=== PATIENT | female | born 1940 | race Hispanic/Latino ===

== ENCOUNTER 2017-08-29 12:47 | Inpatient (IN) | payer MEDICARE, OTHER ==
[~2017-08-29] VITALS: Ht 142.2 cm; Wt 46.3 kg
[2017-08-29] MEDS ORDERED: SODIUM CHLORIDE 0.9% 1000ML 1,000 ML IV SCH (14:15)
[2017-08-29] MEDS ORDERED: ALBUTEROL/IPRATROPIUM 3 ML NEB NEB ONE ×2 (15:45→17:00)
[2017-08-29] MEDS ORDERED: SODIUM CHLORIDE 0.9% 500ML 500 ML IV ONE (16:30)
[2017-08-29] MEDS ORDERED: METHYLPREDNISOLONE SOD SUCC 125 MG/2ML VIAL IV ONE (17:00)
[2017-08-29] MEDS ORDERED: CEFTRIAXONE SOD 1 GM VIAL IV ONE (17:15)
[2017-08-29] MEDS ORDERED: AZITHROMYCIN 500MG/NS 250 ML 250 ML IV ONE (17:15)
[2017-08-29 18:51] VITALS: BP 139/64
[2017-08-29] MEDS ORDERED: ASPIRIN 81 MG CHEW TAB PO ONE (19:00)
[2017-08-29 19:45] VITALS: BP 139/64
--- OUTSIDE RECORDS SUMMARY | 2017-08-29 20:58 | XMS REPORT | Continuity of Care Document ---
Author Author [facility] Organization [facility] Address [address] [place] [address] Phone Unavailable Care Team Providers Care Veterinary Poultry Inspector Name Role Phone NONSTAFF PCP Unavailable Insurance Providers Guarantor KeyurDanica Address [address] [address] Payer [employer] Policy Number [id number] Subscriber's Name Danica Santos Relationship 18 Self / Same As Patient Group Number [id number] Group Name [place] MEDICARE MEDICAID PLAN Advance Directives Directive Response Recorded Date/Time Does the patient have an advance directive? No 08/29/17 12:56pm Do you have a Directive to Physician? No 08/29/17 12:56pm Do you have a Medical Power of Manager Company? No 08/29/17 12:56pm Do you have an out of hospital Do Not Resuscitate Order? No 08/29/17 12:56pm Do you have any special needs we should be aware of? No 08/29/17 12:56pm Do you have a support person here with you today? Yes 08/29/17 12:56pm Did patient receive Notice of Privacy Practices? Yes 08/29/17 12:56pm Did patient receive patient rights and responsibilities? Yes 08/29/17 12:56pm Problems No problem information available. Medications No medication information available. Social History Smoking Status Start Date Stop Date Never Smoker Hospital Discharge Instructions No hospital discharge instruction information available. Plan of Care Discharge Date 08/29/17 6:59pm Disposition ADMITTED Condition at Discharge Stable Forms Provided Work/School Excuse Prescriptions See Medication Section Functional Status No functional status information available. Allergies, Adverse Reactions, Alerts No known allergies. Immunizations No immunization information available. Vital Signs Acute Vital Signs Vital Response Date/Time Temperature (Fahrenheit) 98.4 degrees F (97.6 - 99.5) 08/29/2017 6:52pm Pulse Pulse Rate (adult) 95 bpm (60 - 90) 08/29/2017 6:52pm Respiratory Rate 18 bpm (12 - 24) 08/29/2017 6:52pm Blood Pressure 132/72 mm Hg 08/29/2017 6:52pm Height 4 ft 8 in 08/29/2017 1:15pm Weight 77 lb 08/29/2017 1:15pm Body Mass Index 17.3 kg/m^2 08/29/2017 1:15pm Results No relevant diagnostic test, laboratory data and/or discharge summary information available. Procedures No procedure information available. Encounters Encounter Location Arrival/Admit Date Discharge/Depart Date Attending Provider Departed Emergency Room [facility] 08/29/17 12:47pm 08/29 6:59pm DEEP ATKINS MD
[2017-08-29] MEDS ORDERED: ONDANSETRON HCL INJ 2 MG/ML VIAL IV PRN (21:30)
[2017-08-29] MEDS: ALBUTEROL/IPRATROPIUM 3 ML NEB NEB SCH (21:30)
[2017-08-29] MEDS ORDERED: ACETAMINOPHEN 325 MG TAB PO PRN (21:30)
[2017-08-29] MEDS ORDERED: GABAPENTIN100 MG PO (23:35)
[2017-08-29] MEDS ORDERED: ULTRACET TABLE1 EACH PO (23:35)
[2017-08-29] MEDS ORDERED: LOVASTATIN20 MG PO (23:35)
[2017-08-29] MEDS ORDERED: LOSARTAN POTASS25 MG PO (23:35)
[2017-08-29] MEDS ORDERED: BRESALTEC (23:35)
[2017-08-29] MEDS ORDERED: ALPRAZOLAM0.25 MG PO (23:35)
[2017-08-29] MEDS ORDERED: MONTELUKAST SOD10 MG PO (23:35)
[2017-08-29] MEDS ORDERED: CITALOPRAM HBR20 MG PO (23:35)
[2017-08-30] VITALS (7 sets, daily range): BP systolic 107–141; BP diastolic 57–90
[2017-08-30] MEDS ORDERED: TRAMADOL/APAP 37.5MG-325MG TAB PO PRN
[2017-08-30 00:34] LABS: CREATINE KINASE MB 3.6 ng/mL (0.00-5.00)
[2017-08-30] MEDS: ALBUTEROL/IPRATROPIUM 3 ML NEB NEB SCH ×4 (01:00→20:18)
[2017-08-30] MEDS ORDERED: AZITHROMYCIN 500MG/NS 250 ML 250 ML IV ONE (05:30)
[2017-08-30] MEDS ORDERED: ASPIRIN 325 MG TAB PO ONE (05:30)
[2017-08-30] MEDS ORDERED: CEFTRIAXONE SOD 1 GM VIAL IV ONE (05:30)
[2017-08-30] MEDS ORDERED: METHYLPREDNISOLONE SOD SUCC 125 MG/2ML VIAL IV ONE (05:30)
--- NOTE | 2017-08-30 05:36 | Diagnostic Imaging Report ---
EXAM: CHEST SINGLE (PORTABLE), AP 1 view ORDER DATE: 08/30/2017 5:00 AM Time stamp on exam: 0514 hours INDICATION: COPD/hypoxia COMPARISON: None FINDINGS: LINES/TUBES: None LUNGS: Emphysematous changes. Bibasilar bronchial thickening and atelectasis. PLEURA: No effusions or pneumothorax. HEART AND MEDIASTINUM: Limited evaluation given rotation. BONES AND SOFT TISSUES: No acute findings. IMPRESSION: Emphysematous changes with bronchial thickening and bibasilar atelectasis. Findings could represent bronchitis. Signed by: Dr. Shilpi Cordon M.D. on 08/30/2017 5:33 AM
[2017-08-30 06:21] LABS: HEMOGLOBIN 12.9 g/dL (12.0-16.0); LYMPHOCYTES # (AUTO) 0.3 (1.0-3.2); LYMPHOCYTES % 7.5 % (18.0-39.1); MEAN CORPUSCULAR HEMOGLOBIN 30.6 pg (28-32); MEAN CORPUSCULAR HGB CONC 31.5 g/dL (31-35); MEAN CORPUSCULAR VOLUME 97.4 fL (81-99); MONOCYTES # (AUTO) 0.1 (0.2-0.8); MONOCYTES % 3.1 % (4.4-11.3); NEUTROPHILS # (AUTO) 3.8 (2.1-6.9); NEUTROPHILS % 88.7 % (38.7-80.0); PLATELET COUNT 116 x10e3/uL (140-360); RED BLOOD COUNT 4.21 x10e6/uL (3.6-5.1); RED CELL DISTRIBUTION WIDTH 13.6 % (11.7-14.4)
[2017-08-30 06:48] LABS: ANION GAP 12.6 mmol/L (8-16); BLOOD UREA NITROGEN 22 mg/dL (7-26); BUN/CREATININE RATIO 26 (6-25); CARBON DIOXIDE 34 mmol/L (22-29); CHLORIDE 105 mmol/L (98-107); CREATINE KINASE 94 IU/L (29-168); CREATININE, SERUM 0.85 mg/dL (0.57-1.11); EST GLOMERULAR FILTRATION RATE > 60 ML/MIN (60-); GLUCOSE 169 mg/dL (74-118); POTASSIUM 4.6 mmol/L (3.5-5.1); SODIUM 147 mmol/L (136-145)
[2017-08-30] MEDS: CITALOPRAM HYDROBROMIDE 20 MG TAB PO SCH (08:25)
[2017-08-30] MEDS: LOSARTAN POTASSIUM 25 MG TAB PO SCH (08:25)
[2017-08-30] MEDS ORDERED: LEVALBUTEROL HCL SOLN NEBU 0.63 MG/3 ML NEB INH PRN (10:15)
--- NOTE | 2017-08-30 10:24 | History and Physical ---
CHIEF COMPLAINT DICTATION NOT COMPLETE, LENGTH 0:10 Job#: [id number] RI
--- NOTE | 2017-08-30 10:41 | History and Physical ---
The patient is confused. Family is speaking Monegasque. The history is taken with the help of an incident response lead. CHIEF COMPLAINT: Not feeling well and sleepy. HPI: Ms. Klein is a 77-year-old female who presented to the free-standing emergency room because the family brought her in as she was too sleepy and confused. We do not know exactly how long she has been confused. She is living by herself. One of her nieces takes care of her 6 hours a day. In the emergency room, the patient underwent a chest x-ray, which showed emphysematous changes. I am unable to look at those films despite the fact the CDs are here, but they are not working. CT of head showed no evidence of acute hemorrhage or infarct. She had a CT of the chest, which showed a 1 cm spiculated nodule. I am not able to look at the films. She has 40+ smoking history. She quit 15 years ago. She is confused and unable to give me more history. According to the family, she has a history of high blood pressure. REVIEW OF SYSTEMS: Unable to elicit a detailed review of systems because of the patient's altered mental status. PAST MEDICAL HISTORY: Hypertension. PAST SURGICAL HISTORY: Unknown. FAMILY AND SOCIAL HISTORY: Ex-smoker. PHYSICAL EXAMINATION VITAL SIGNS: Temperature 96.8, pulse 104, blood pressure 118/57, afebrile. SKIN: Warm and dry. GENERAL: Elderly female not in any obvious distress. She is awake and alert, and following commands. Responds to questions appropriately. HEENT: Atraumatic and normocephalic. Pupils reactive. NECK: Supple. No JVD. CHEST: Markedly reduced air entry. Poor effort. HEART: S1 and S2 audible. No murmurs, gallops or rubs. ABDOMEN: Soft, nontender and nondistended. EXTREMITIES: No pedal edema. NEUROLOGIC: Awake and alert. Following commands. LABS: White count of 4000, hemoglobin 12.9. Chemistry is within normal limits. Troponin went from 0.79 to 0.81. IMPRESSION: Ms. Klein is a 77-year-old female who presented with altered mental status. Likely, has a history of chronic obstructive pulmonary disease. Computerized tomography of the head is negative. PLAN 1. I will continue the patient on Xopenex nebs. 2. Repeat a CT of the chest as I am unable to look at the film. Patient has a spiculated mass, which I have to evaluate. 3. Consult neurology for altered mental status. 4. Consult cardiology for abnormal troponin. 5. Discussed with the patient's niece at bedside in detail. 6. I will also put case management consult. Patient possibly may need placement. Job#: [id number] YUDI
[2017-08-30] MEDS ORDERED: DEXTROSE 50% SYRINGE 50 ML IV PRN (11:00)
[2017-08-30] MEDS: INSULIN REGULAR, HUMAN 100 UNIT/1 ML 3ML VIAL SQ SCH ×3 (11:30→21:00)
--- NOTE | 2017-08-30 11:58 | Diagnostic Imaging Report ---
PROCEDURE: CT CHEST WITHOUT CONTRAST CT scan of the chest WITHOUT intravenous contrast, using standard protocol. TECHNIQUE: The chest was scanned utilizing a multidetector helical scanner from the apex to the level of the adrenal glands. No IV contrast was administered. Coronal and sagittal multiplanar reformations were obtained. COMPARISON: Chest radiograph 08/30/2017 INDICATIONS: SHORTNESS OF BREATH FINDINGS: Lines/tubes: None. Lungs and Airways: Diffuse centrilobular emphysematous changes. No focal consolidations. Few nodules, including (on series 3): * Right lower lobe superior segment 0.9 cm spiculated nodular opacity (image 37). * Right lower lobe 0.4 cm nodule (image 55). * Left lower lobe calcified granuloma. Central airways are clear. Mild bronchial wall thickening, more prominent in the lower lobes. Pleura: The pleural spaces are clear. Heart and mediastinum: Enlarged noncalcified AP window lymph node measures 1.3 cm in short axis dimension (series 2 image 45). Additional scattered prominent but subcentimeter mediastinal nodes. Calcified left hilar lymph node, likely related to prior granulomatous disease. The heart and pericardium are within normal limits. The pulmonary artery measures 3 cm in diameter. Ascending aorta measures 2.9 cm in diameter. Coronary artery and aortic atherosclerotic calcifications. Densely peripherally calcified 1.2 cm nodule in the posterior right thyroid lobe. Soft tissues: Normal. Abdomen: Low attenuating 0.7 cm lesion in the left kidney, incompletely evaluated but may represent a cyst. Limited views of the upper abdomen show no abnormality within the visualized liver, spleen, or pancreas. The adrenal glands are normal. Bones: Multilevel degenerative changes of the spine. No acute or aggressive osseous lesions. IMPRESSION: 1. No evidence of pneumonia. 2. Diffuse centrilobular emphysema. Mild bronchial wall thickening likely reflecting bronchitis. 3. Few pulmonary nodules including a 0.9 cm right lower lobe spiculated nodule. Recommend chest CT without contrast in 3 months, PET/CT, or tissue sampling. Dictated by: Suhas Black M.D. on 08/30/2017 at 12:07 Electronically approved by: Suhas Black M.D. on 08/30/2017 at 12:07
--- NOTE | 2017-08-30 13:19 | Consultation ---
DATE OF CONSULTATION: August 30, 2017 CARDIOLOGY CONSULTATION ATTENDING PHYSICIAN: Dr. James. Thank you for asking me to see this nice lady in consultation. Mrs. Klein is apparently a demented, elderly, woman who speaks only South African. CHIEF COMPLAINT: Sent from Dr. Akbar's office with increasing shortness of breath. HISTORY OF PRESENT ILLNESS: Patient is not able to provide me with any details really. She thinks it is the afternoon, even though it is the morning. PAST MEDICAL HISTORY: Not fully available, although it is known that she uses oxygen and inhalers at home. Patient cannot provide me details of her past medical history or surgical history. PHYSICAL EXAMINATION GENERAL: Exam at this time shows a disheveled, elderly, woman who, while she can tell me her name and that she is in a hospital, does not cooperate with my physical exam. VITALS: Current blood pressure 118/57, pulse 100, afebrile, 4 feet 8 inches tall with weight 102 pounds. HEENT: Unremarkable. NECK: No jugular venous distention. No bruits. THORAX: Heart sounds S1 and S2 are equal. There is a 1/6 systolic murmur in the aortic region. Lungs have faint diffuse crackles anterior and posterior ABDOMEN: Normal bowel sounds, nontender. EXTREMITIES: Skin excoriations in the lower extremities. No edema. EKG shows sinus rhythm. Sinus tachycardia with nonspecific ST and T-wave changes. Possible small Q waves in the inferior leads. PERTINENT LABORATORY STUDIES: Glucose 169. White count 4.2, hemoglobin 12.9. Troponins are mildly elevated at 0.79 and 0.81, but CK and CK-MBs are perfectly normal. Chest x-ray shows emphysematous changes and possible bronchitis. Evidently CAT scan of the chest was performed at the Emergency Center suggesting possible spiculated mass in the right lower lobe, but those images are not available at this time. ASSESSMENT 1. Exacerbation of chronic obstructive pulmonary disease. Previously using home oxygen. 2. Possible lung mass. 3. Adult-onset diabetes, history not available. 4. Abnormal troponins, likely underlying coronary disease but not representing myocardial infarction. 5. Murmur not previously diagnosed, likely aortic in location. PLAN: Will monitor her closely. Await pulmonary further evaluation and treatment. Check echocardiogram and repeat EKG. She will need social work services as she currently lives alone and the niece in the room does not speak any Kazakh and cannot read Kazakh or South African. Thank you for asking me to see her consultation. Job#: [id number] cc:Zayda STILL MD
[2017-08-30] MEDS ORDERED: ROPIVACAINE 246.25 MG, EPINEPHRINE HCL 1:1000 0.5 MG, CLONIDINE HCL 0.08 MG, KETOROLAC ... INJ ONE ×5 (14:30)
--- NOTE | 2017-08-30 19:58 | Consultation ---
DATE OF CONSULTATION: NO DICTATION. 2 seconds. Job#: [id number] GH
[2017-08-30] MEDS: SIMVASTATIN 20 MG TAB PO SCH (20:37)
[2017-08-30] MEDS: MONTELUKAST SODIUM 10 MG TAB PO SCH (20:37)
--- NOTE | 2017-08-30 22:10 | Consultation ---
DATE OF CONSULTATION: August 30, 2017 NEUR[address]ICAL [address] Patient of Dr. James. TIME: 6 p.m. REASON FOR CONSULTATION: Altered mental status. This is a 77-year-old female who was brought to the emergency room by family members because of not feeling well, confused and shortness of breath. At the present time, she is here along with her niece, who said that she has been somewhat confused for a while, but yesterday got worse, disoriented, shortness of breath. Went to the PCP and was sent to the emergency room. PAST MEDICAL HISTORY: She has a history of hypertension, COPD, and altered mental status. SURGICAL HISTORY: Unknown. The niece says she has sisters living in [place], but now she is living alone. She some times needs from time to time. REVIEW OF SYSTEMS: Unable to get any information. PHYSICAL EXAMINATION GENERAL: Very talkative lady. VITALS: Blood pressure is quite normal. It is 110/60, pulse 76, and afebrile. LUNGS: Clear to auscultation. HEART: Regular sinus rhythm. No murmur. ABDOMEN: Soft. No organomegaly. EXTREMITIES: Moving all 4 extremities symmetrical. NEURO: The patient is alert. Follows simple commands. She is disoriented times 3. She does not where she is now. She does not know where she lives. She talked about her sister being in [place]. She denies any headache. No dizziness, speech or swallowing difficulties. No focal paresthesia. The niece said she cannot walk because of body complaints. Cranial nerves: Pupils are both equal and reactive. Extraocular movements were full. Visual field was normal. No facial weakness. The patient is moving all 4 extremities symmetrical. No evidence of focal weakness. Plantar stimulation is down bilaterally. Deep tendon reflexes of the triceps, biceps and radialis are 1+. Knee jerk absent bilaterally. Ankle jerk absent bilaterally. Plantar stimulation down bilaterally. HEENT: Head is normocephalic. NECK: Supple. Carotid pulsations were present bilaterally with no bruits. LABORATORY WORKUP: CBC shows a white count of 4200 with hemoglobin of 12.9, hematocrit 41 and platelets 116,000. Chemistry: Sodium 147, potassium 4.6, BUN 22, creatinine 1.85, estimated GFR greater than 60. Glucose 169. Calcium 9. Troponin somewhat elevated. CT scan of the brain shows no acute pathology. IMPRESSION 1. Dementia, unspecified. 2. Chronic obstructive pulmonary disease. 3. Hypertension. RECOMMENDATIONS: We are going to get an MRI of the brain without contrast. Will get to evaluate the patient. As soon as we have the MRI, will discuss with the attending physician for further options. Job#: [id number] RI
[2017-08-31] VITALS (8 sets, daily range): BP systolic 122–160; BP diastolic 64–94
[2017-08-31] MEDS: ALBUTEROL/IPRATROPIUM 3 ML NEB NEB SCH ×4 (01:00→20:35)
[2017-08-31] MEDS: ALPRAZOLAM 0.25 MG TAB PO SCH ×3 (06:30→21:54)
[2017-08-31] MEDS ORDERED: LORAZEPAM INJ 2 MG/ML VIAL IV PRN (07:00)
[2017-08-31] MEDS: INSULIN REGULAR, HUMAN 100 UNIT/1 ML 3ML VIAL SQ SCH ×4 (07:30→21:00)
[2017-08-31] MEDS: METOPROLOL TARTRATE 25 MG TAB PO SCH ×2 (08:55→21:53)
[2017-08-31] MEDS: LOSARTAN POTASSIUM 25 MG TAB PO SCH (08:55)
[2017-08-31] MEDS: CITALOPRAM HYDROBROMIDE 20 MG TAB PO SCH (08:55)
[2017-08-31] MEDS: ASPIRIN 325 MG TAB PO SCH (08:55)
[2017-08-31] MEDS: FAMOTIDINE 20 MG/2 ML VIAL IV SCH ×2 (09:00→17:20)
[2017-08-31 09:07] LABS: CHOL/HDL RATIO 3.3 (3.0-3.6)
--- NOTE | 2017-08-31 09:22 | Consultation ---
DATE OF CONSULTATION: REQUESTING PHYSICIAN: Dr. James. REASON FOR CONSULTATION: Medical management. CHIEF COMPLAINT: Confusion and shortness of breath. HISTORY OF PRESENT ILLNESS: This is a 77-year-old woman who is in the hospital with a state of confusion. History is limited at this time, unable to obtain any prior records and the patient is a poor historian. However, based on the electronic medical record on this occasion, the patient was confused when she presented to the hospital. Imaging showed a spiculated lung nodule in the setting of significant smoking history. The patient was also found to have emphysematous changes of the lungs. No CT of the brain has yet been obtained. Urinalysis has not yet been obtained. PAST MEDICAL HISTORY: Hypertension. Tobacco abuse. PAST SURGICAL HISTORY: Unknown. ALLERGIES: PER ELECTRONIC MEDICAL RECORD. FAMILY HISTORY AND SOCIAL HISTORY: The patient lives with her niece, who is involved in her care. History of significant cigarette use for 40-plus years. MEDICATIONS: Per electronic medical record. REVIEW OF SYSTEMS: Patient denies any chest pain. PHYSICAL EXAMINATION VITAL SIGNS: Have been reviewed. GENERAL APPEARANCE: A tired-appearing woman resting in bed. HEENT: Anicteric. CARDIOVASCULAR: Normal S1 and S2. LUNGS: She has reduced breath sounds throughout. ABDOMEN: Soft, nontender, nondistended. EXTREMITIES: No edema or calf tenderness. NEUROLOGIC: She is awake and alert. She moves all extremities, but confused. SKIN: Dry. PSYCHIATRIC: Flat affect. LABS: Reviewed. MEDICATIONS: Reviewed. ASSESSMENT AND PLAN: A 77-year-old woman. 1. Acute delirium. Will follow up MRI imaging. 2. Spiculated right lung nodule. Whether biopsy is needed is unclear at this time. In the meantime, will treat her supportively and further discuss with family. 3. Hypernatremia. Check labs this morning. 4. Elevated troponin as high as 0.837. Will obtain a lipid panel. Continue statin medications. Add aspirin 325. Await cardiology evaluation. 5. Acute emphysema exacerbation. I will continue montelukast. Consider steroids. 6. Anxiety/depression. Will continue citalopram and treat her with Xanax 0.25 q.12 h. scheduled. 7. Physical deconditioning. Physical therapy consultation. 8. Thrombocytopenia. We will avoid anticoagulants in this patient. 9. Hypertension and tachycardia. Will start her on low-dose beta meghan in the setting of elevated troponin. 10. Hyperglycemia. Will obtain hemoglobin A1c. 11. Prophylaxis: Will apply SCDs. Will use Pepcid. Hold off anticoagulants in the setting of thrombocytopenia. 12. Disposition: Obtain urinalysis. Obtain TSH. Follow up cardiology's recommendations. Job#: [id number]
[2017-08-31] MEDS ORDERED: LORAZEPAM INJ 2 MG/ML VIAL ONE (14:06)
[2017-08-31 15:30] LABS: BILIRUBIN,URINE NEGATIVE (NEGATIVE); CLARITY,URINE CLEAR (CLEAR); COLOR,URINE YELLOW (YELLOW); KETONES,URINE NEGATIVE (NEGATIVE); LEUKOCYTE ESTERASE ,URINE NEGATIVE (NEGATIVE); NITRITE,URINE NEGATIVE (NEGATIVE); URINE UROBILINOGEN 0.2 mg/dL (0.2 - 1)
[2017-08-31 15:32] LABS: PROTEIN,URINE DIPSTICK 1+ (NEGATIVE)
[2017-08-31 15:38] LABS: BACTERIA,URINE RARE /HPF; EPITHELIAL CELLS,URINE FEW /LPF; MUCUS,URINE RARE (RARE); RBC,URINE 0-5 /HPF (0-5)
[2017-08-31] MEDS: MONTELUKAST SODIUM 10 MG TAB PO SCH (21:53)
[2017-08-31] MEDS: SIMVASTATIN 20 MG TAB PO SCH (21:53)
[2017-09-01] VITALS (8 sets, daily range): BP systolic 119–162; BP diastolic 58–94
--- NOTE | 2017-09-01 00:19 | Cardiology Report ---
DATE OF STUDY: ECHOCARDIOGRAM M-MODE: Dilated right ventricle and right atrium. Normal left ventricular wall thickness and contractility. Ejection fraction is approximately 60%. Mitral, aortic, and tricuspid valves are grossly normal. There is no pericardial effusion. SECTOR SCAN: Dilated right ventricle and right atrium. Normal left ventricular wall thickness and contractility. Ejection fraction is approximately 60%. Mitral, aortic, and tricuspid valves are grossly normal. There is no pericardial effusion. CARDIAC DOPPLER STUDY WITH COLOR: 2+ tricuspid regurgitation. Pulmonary artery systolic pressure estimated at 54 mmHg. CONCLUSIONS 1. Moderate tricuspid regurgitation with dilated right ventricle and right atrium with moderate pulmonary hypertension. Pulmonary artery systolic pressure estimated at 54 mmHg. 2. Left ventricular ejection fraction is approximately 60%. Job#: [id number] cc:ALBINO ROJAS MD
[2017-09-01] MEDS: ALBUTEROL/IPRATROPIUM 3 ML NEB NEB SCH ×4 (01:00→20:05)
[2017-09-01] MEDS: INSULIN REGULAR, HUMAN 100 UNIT/1 ML 3ML VIAL SQ SCH ×4 (07:30→21:07)
[2017-09-01] MEDS: ALPRAZOLAM 0.25 MG TAB PO SCH ×2 (09:42→21:07)
[2017-09-01] MEDS: ASPIRIN 325 MG TAB PO SCH (09:42)
[2017-09-01] MEDS: METOPROLOL TARTRATE 25 MG TAB PO SCH ×2 (09:42→21:07)
[2017-09-01] MEDS: LOSARTAN POTASSIUM 25 MG TAB PO SCH (09:42)
[2017-09-01] MEDS: FAMOTIDINE 20 MG/2 ML VIAL IV SCH ×2 (09:42→16:55)
[2017-09-01] MEDS: CITALOPRAM HYDROBROMIDE 20 MG TAB PO SCH (09:42)
--- NOTE | 2017-09-01 11:22 | Progress Note ---
DATE: ADDENDUM The patient's hemoglobin A1c is 6.2. She has pre-diabetes. Placed her on diabetic diet. LDL is 80 and triglycerides 91. Continue statin. Job#: [id number] SAK
--- NOTE | 2017-09-01 11:44 | Progress Note ---
DATE: September 01, 2017 TIME: 7 a.m. OVERNIGHT: Less short of breath. REVIEW OF SYSTEMS: Denies any chest pain. PHYSICAL EXAMINATION VITAL SIGNS: Reviewed. GENERAL: A tired-appearing woman, resting in bed. HEENT: Anicteric. CARDIOVASCULAR: Normal S1, S2. LUNGS: Reduced breath sounds throughout. ABDOMEN: Soft, nontender, nondistended. EXTREMITIES: No edema or calf tenderness. NEUROLOGIC: Alert and awake and appropriate, moving all extremities. SKIN: Dry. PSYCHIATRIC: Flat affect. LABS: Reviewed. MEDICATIONS: Reviewed. ASSESSMENT AND PLAN: A 77-year-old woman with; 1. Acute delirium. 2. Spiculated right lung nodule. 3. Hypernatremia. 4. Elevated troponin. 5. Acute emphysema exacerbation. 6. Anxiety/depression. 7. Physical deconditioning. 8. Thrombocytopenia. 9. Hypertension/tachycardia. 10. Hyperglycemia. PLAN 1. Continue oxygen support. 2. Hemoglobin A1c 6.2, LDL 80, and triglycerides 91. 3. Troponin is non-evolving with highest troponin 8.37. 4. Continue beta-meghan, statin, and aspirin. 5. Continue nebs, montelukast, oxygen. 6. Followup echocardiogram. Echocardiogram showed left ventricular ejection fraction of 60%, moderate TR, and moderate pulmonary hypertension. 7. Continue Pepcid. No anticoagulants due to thrombocytopenia. 8. Obtain labs this morning. 9. Plan for spiculated lung nodule and elevated cardiac enzymes ongoing. Job#: [id number] MINO
[2017-09-01] MEDS: MONTELUKAST SODIUM 10 MG TAB PO SCH (21:07)
[2017-09-01] MEDS: SIMVASTATIN 20 MG TAB PO SCH (21:07)
[2017-09-02] VITALS: BP 179/77
[2017-09-02] MEDS: ALBUTEROL/IPRATROPIUM 3 ML NEB NEB SCH ×4 (01:25→20:12)
[2017-09-02 04:00] VITALS: BP 157/75
[2017-09-02] MEDS: INSULIN REGULAR, HUMAN 100 UNIT/1 ML 3ML VIAL SQ SCH ×4 (08:00→20:50)
[2017-09-02] MEDS: LOSARTAN POTASSIUM 25 MG TAB PO SCH (08:45)
[2017-09-02] MEDS: ASPIRIN 325 MG TAB PO SCH (08:45)
[2017-09-02] MEDS: FAMOTIDINE 20 MG/2 ML VIAL IV SCH ×2 (08:45→17:57)
[2017-09-02] MEDS: ALPRAZOLAM 0.25 MG TAB PO SCH ×2 (08:45→20:50)
[2017-09-02] MEDS: METOPROLOL TARTRATE 25 MG TAB PO SCH ×2 (08:45→20:50)
[2017-09-02] MEDS: MEGESTROL ACETATE 40 MG TAB PO SCH ×2 (08:45→17:57)
[2017-09-02] MEDS: CITALOPRAM HYDROBROMIDE 20 MG TAB PO SCH (08:45)
[2017-09-02 10:20] VITALS: BP 163/74
[2017-09-02 11:32] LABS: BASOPHILS % 0.1 % (0.0-1.0); EOSINOPHILS % 0.5 % (0.0-6.0); HEMATOCRIT 40.3 % (34.2-44.1); HEMOGLOBIN 12.7 g/dL (12.0-16.0); LYMPHOCYTES # (AUTO) 0.8 (1.0-3.2); LYMPHOCYTES % 11.2 % (18.0-39.1); MEAN CORPUSCULAR HEMOGLOBIN 30.6 pg (28-32); MEAN CORPUSCULAR HGB CONC 31.5 g/dL (31-35); MEAN CORPUSCULAR VOLUME 97.1 fL (81-99); MONOCYTES # (AUTO) 0.7 (0.2-0.8); MONOCYTES % 9.4 % (4.4-11.3); NEUTROPHILS # (AUTO) 5.7 (2.1-6.9); NEUTROPHILS % 78.4 % (38.7-80.0); PLATELET COUNT 124 x10e3/uL (140-360); RED BLOOD COUNT 4.15 x10e6/uL (3.6-5.1); RED CELL DISTRIBUTION WIDTH 13.2 % (11.7-14.4)
[2017-09-02 11:56] LABS: ANION GAP 10.5 mmol/L (8-16); BLOOD UREA NITROGEN 15 mg/dL (7-26); BUN/CREATININE RATIO 20 (6-25); CALCIUM 8.8 mg/dL (8.4-10.2); CARBON DIOXIDE 35 mmol/L (22-29); CHLORIDE 100 mmol/L (98-107); CREATININE, SERUM 0.75 mg/dL (0.57-1.11); EST GLOMERULAR FILTRATION RATE > 60 ML/MIN (60-); GLUCOSE 178 mg/dL (74-118); POTASSIUM 3.5 mmol/L (3.5-5.1); SODIUM 142 mmol/L (136-145)
--- NOTE | 2017-09-02 12:12 | Progress Note ---
DATE: September 02, 2017 at 6:35 a.m. SUBJECTIVE: Overnight no events. Feeling a little bit better. REVIEW OF SYSTEMS: Denies any chest pain. PHYSICAL EXAMINATION VITAL SIGNS: Reviewed. GENERAL: A tired-appearing woman, resting in bed. HEENT: Anicteric. CARDIOVASCULAR: Normal S1, S2. LUNGS: Moderate breath sounds, reduced throughout. ABDOMEN: Soft, nontender, nondistended. EXTREMITIES: No edema or calf tenderness. NEUROLOGIC: Alert and awake and appropriate, moving all extremities. SKIN: Dry. PSYCHIATRIC: Flat affect, somewhat anxious. LABS: Reviewed. MEDICATIONS: Reviewed. ASSESSMENT AND PLAN: A 77-year-old woman with; 1. Acute delirium. 2. Spiculated right lung nodule. 3. Hypernatremia. 4. Elevated troponin. 5. Acute emphysema exacerbation. 6. Anxiety/depression. 7. Physical deconditioning. 8. Thrombocytopenia. 9. Hypertension/tachycardia. 10. Hyperglycemia/prediabetes. Hemoglobin A1c was 6.2, LDL 80, triglycerides 91. PLAN 1. Continue nebs, montelukast and oxygen support. 2. Echocardiogram showed normal left ventricular ejection fraction. 3. Need spiculated mass further evaluation. Will defer to pulmonary services. 4. Obtain labs this morning. 5. Continue physical therapy. 6. All cultures remain negative. 7. Follow up CT of the brain from yesterday for report. 8. Skilled facility evaluation. Job#: [id number]
--- NOTE | 2017-09-02 12:13 | Progress Note ---
DATE: September 02, 2017 ADDENDUM: The patient also had hypoglycemic episode of 30 overnight, suspected from the patient having poor appetite and not eating. Will start her on Megace as an appetite stimulant and add Ensure at the bedside 3 times a day. Job#: [id number] KRISTY
[2017-09-02 14:03] VITALS: BP 157/75
[2017-09-02 16:55] VITALS: BP 157/75
[2017-09-02 20:00] VITALS: BP 155/75
[2017-09-02] MEDS: MONTELUKAST SODIUM 10 MG TAB PO SCH (20:50)
[2017-09-02] MEDS: SIMVASTATIN 20 MG TAB PO SCH (20:50)
[2017-09-03] VITALS (8 sets, daily range): BP systolic 121–167; BP diastolic 62–97
[2017-09-03] MEDS: ALBUTEROL/IPRATROPIUM 3 ML NEB NEB SCH ×4 (01:54→20:00)
[2017-09-03] MEDS: INSULIN REGULAR, HUMAN 100 UNIT/1 ML 3ML VIAL SQ SCH ×4 (07:30→21:00)
[2017-09-03] MEDS: ALPRAZOLAM 0.25 MG TAB PO SCH ×2 (08:14→22:34)
[2017-09-03] MEDS: CITALOPRAM HYDROBROMIDE 20 MG TAB PO SCH (08:14)
[2017-09-03] MEDS: LOSARTAN POTASSIUM 25 MG TAB PO SCH (08:14)
[2017-09-03] MEDS: MEGESTROL ACETATE 40 MG TAB PO SCH ×2 (08:15→17:02)
[2017-09-03] MEDS: ASPIRIN 325 MG TAB PO SCH (08:15)
[2017-09-03] MEDS: FAMOTIDINE 20 MG/2 ML VIAL IV SCH ×2 (08:15→17:02)
[2017-09-03] MEDS: METOPROLOL TARTRATE 25 MG TAB PO SCH ×2 (08:15→22:33)
--- NOTE | 2017-09-03 10:22 | Progress Note ---
DATE: September 03, 2017 TIME: 7:15 a.m. OVERNIGHT: No events. REVIEW OF SYSTEMS: Unreliable. PHYSICAL EXAMINATION VITAL SIGNS: Reviewed. GENERAL: A tired-appearing woman, resting in bed. HEENT: Anicteric. CARDIOVASCULAR: Normal S1 and S2. LUNGS: She has mildly coarse breath sounds, reduced at the bases. Some coughing with deep inspiration. ABDOMEN: Soft, nontender, nondistended. EXTREMITIES: No edema or calf tenderness. NEUROLOGIC: Alert, awake, oriented to self. Moving all extremities. SKIN: Dry. PSYCHIATRIC: Flat affect, somewhat anxious. LABS: Reviewed. MEDICATIONS: Reviewed. ASSESSMENT: This is a 77-year-old woman with: 1. Acute delirium. 2. Spiculated right lung nodule. 3. Hypernatremia. 4. Elevated troponin. 5. Acute emphysema exacerbation. 6. Anxiety/depression. 7. Physical deconditioning. 8. Thrombocytopenia. 9. Hypertension/tachycardia. 10. Hyperglycemia/prediabetes. Hemoglobin A1c is 6.2, LDL 80, triglycerides 91. PLAN 1. Continue nebs, montelukast, and oxygen support. 2. Echocardiogram showed normal ejection fraction. 3. Spiculated mass evaluation per pulmonary services. 4. All cultures remained negative. 5. Followup CT brain report back on 09/01/2017. Job#: [id number] MINO
--- NOTE | 2017-09-03 19:25 | Progress Note ---
DATE: September 03, 2017 at 5:30 p.m. NEUROLOGIC PROGRESS NOTE The patient seems to be better now. He is awake, calm, follows commands well. Speech is clear. She is disoriented x2. There are no hallucinations, no agitation. Moves all 4 extremities symmetrical. No evidence of focal weakness. Plantar stimulation down bilaterally. LABORATORY DATA: CBC: White count 7300 with hemoglobin 12.7, hematocrit 40.3 and platelets 124,000. Chemistry: Sodium 142, potassium 3.5, BUN 15, creatinine 0.75. Blood sugar 110 now. IMPRESSION 1. Dementia, probably Alzheimer type. 2. Chronic obstructive pulmonary disease. 3. Hypertension. PLAN: Continue with the conservative therapy Job#: [id number]
[2017-09-03] MEDS: MONTELUKAST SODIUM 10 MG TAB PO SCH (22:33)
[2017-09-03] MEDS: SIMVASTATIN 20 MG TAB PO SCH (22:34)
[2017-09-04] VITALS (7 sets, daily range): BP systolic 111–142; BP diastolic 57–86
[2017-09-04] MEDS: ALBUTEROL/IPRATROPIUM 3 ML NEB NEB SCH ×4 (01:15→20:05)
[2017-09-04] MEDS: INSULIN REGULAR, HUMAN 100 UNIT/1 ML 3ML VIAL SQ SCH ×4 (07:30→21:00)
[2017-09-04] MEDS: ASPIRIN 325 MG TAB PO SCH (09:27)
[2017-09-04] MEDS: CITALOPRAM HYDROBROMIDE 20 MG TAB PO SCH (09:27)
[2017-09-04] MEDS: FAMOTIDINE 20 MG/2 ML VIAL IV SCH ×2 (09:27→17:32)
[2017-09-04] MEDS: LOSARTAN POTASSIUM 25 MG TAB PO SCH (09:27)
[2017-09-04] MEDS: MEGESTROL ACETATE 40 MG TAB PO SCH ×2 (09:28→17:32)
[2017-09-04] MEDS: ALPRAZOLAM 0.25 MG TAB PO SCH ×2 (09:28→21:19)
[2017-09-04] MEDS: METOPROLOL TARTRATE 25 MG TAB PO SCH ×2 (09:28→21:19)
--- NOTE | 2017-09-04 12:46 | Diagnostic Imaging Report ---
History:History of dementia Comparison studies:None Technique: Axial images were obtained from the skull base to the vertex. Coronal and sagittal images reconstructed from the axial data. Intravenous contrast: None Findings: Scalp/skull: No abnormalities. Extra-axial spaces: No masses. No fluid collections. Brain sulci: Moderately prominent. Ventricles: Moderate compensatory dilatation. No hydrocephalus. Parenchyma: Scattered small hypodensities in the supratentorial white matter are small vessel ischemic changes. No masses, hemorrhage, acute or chronic cortical vascular insults. Sellar/suprasellar region: No abnormalities. Craniocervical junction: Patent foramen magnum. No Chiari one malformation. Incidental findings: Atherosclerotic calcifications in the carotid siphons . Impression: No acute abnormalities. Chronic findings: 1. Moderate generalized volume loss. 2. Mild supratentorial white matter small vessel ischemic changes. Signed by: DR Uli Sanchez M.D. on 09/04/2017 12:43 PM
[2017-09-04] MEDS: SIMVASTATIN 20 MG TAB PO SCH (21:19)
[2017-09-04] MEDS: MONTELUKAST SODIUM 10 MG TAB PO SCH (21:19)
[2017-09-05] VITALS (8 sets, daily range): BP systolic 104–135; BP diastolic 53–67
[2017-09-05] MEDS: ALBUTEROL/IPRATROPIUM 3 ML NEB NEB SCH ×4 (01:17→19:32)
[2017-09-05] MEDS: INSULIN REGULAR, HUMAN 100 UNIT/1 ML 3ML VIAL SQ SCH ×4 (07:30→21:00)
[2017-09-05] MEDS: METOPROLOL TARTRATE 25 MG TAB PO SCH ×2 (08:30→21:00)
[2017-09-05] MEDS: CITALOPRAM HYDROBROMIDE 20 MG TAB PO SCH (08:30)
[2017-09-05] MEDS: FAMOTIDINE 20 MG/2 ML VIAL IV SCH ×2 (08:30→17:00)
[2017-09-05] MEDS: ASPIRIN 325 MG TAB PO SCH (08:30)
[2017-09-05] MEDS: LOSARTAN POTASSIUM 25 MG TAB PO SCH (08:30)
[2017-09-05] MEDS: ALPRAZOLAM 0.25 MG TAB PO SCH ×2 (08:30→21:00)
[2017-09-05] MEDS: MEGESTROL ACETATE 40 MG TAB PO SCH ×2 (08:30→17:00)
--- NOTE | 2017-09-05 08:40 | Progress Note ---
DATE: September 04, 2017 TIME: 8:10 a.m. OVERNIGHT: No events. REVIEW OF SYSTEMS: Denies any chest pain. PHYSICAL EXAMINATION VITAL SIGNS: Reviewed. GENERAL: A tired-appearing woman resting in bed. HEENT: Anicteric. CARDIOVASCULAR: Normal S1 and S2. LUNGS: Moderate breath sounds. Mildly coarse. ABDOMEN: Soft and nontender. EXTREMITIES: No edema. SKIN: Dry. PSYCHIATRIC: Flat affect. LABS: Reviewed. MEDICATIONS: Reviewed. ASSESSMENT: A 77-year-old woman with: 1. Acute delirium/spiculated right lung nodule. 2. Hyponatremia. 3. Elevated troponin. 4. Acute emphysema exacerbation. 5. Anxiety/depression. 6. Physical deconditioning. 7. Thrombocytopenia. 8. Hypertension/tachycardia. 9. Hyperglycemia/prediabetes: Hemoglobin A1c 6.2, LDL 80 and triglycerides 91. PLAN 1. Continue antibiotics, nebs, antitussive medications. 2. Echocardiogram with normal ejection fraction. 3. Spiculated mass, near 0.9 cm. Needs followup outpatient. 4. All cultures remain negative. 5. Continue current care. Job#: [id number] YUDI
--- NOTE | 2017-09-05 08:40 | Progress Note ---
DATE: September 05, 2017 TIME: 7:56 a.m. OVERNIGHT: No events. REVIEW OF SYSTEMS: Denies any chest pain. She has mild shortness of breath. VITAL SIGNS: Reviewed. PHYSICAL EXAMINATION GENERAL: A tired-appearing woman resting in bed. HEENT: Anicteric. CARDIOVASCULAR: Normal S1 and S2. LUNGS: Moderate breath sounds, mildly coarse. ABDOMEN: Soft, nontender, nondistended. EXTREMITIES: No edema. SKIN: Dry. PSYCHIATRIC: Flat affect. LABS: Reviewed. MEDICATIONS: Reviewed. ASSESSMENT: This is a 77-year-old woman. 1. Acute delirium. 2. Spiculated right lung nodule, 0.9 cm. 3. Hypernatremia. 4. Elevated troponin. 5. Acute emphysema exacerbation. 6. Anxiety/depression. 7. Physical deconditioning. 8. Thrombocytopenia. 9. Hypertension/tachycardia. 10. Hyperglycemia/prediabetes. Hemoglobin A1c is 6.2, LDL 80, triglycerides 91. PLAN 1. Continue nebs, steroids, antibiotics. 2. Continue physical therapy. 3. Continue beta meghan. 4. Continue anxiety medication. 5. Continue Megace for anorexia. 6. Discharge plan to skilled facility is pending. Job#: [id number]
[2017-09-05] MEDS: MONTELUKAST SODIUM 10 MG TAB PO SCH (21:00)
[2017-09-05] MEDS: SIMVASTATIN 20 MG TAB PO SCH (21:00)
[2017-09-06] MEDS: ALBUTEROL/IPRATROPIUM 3 ML NEB NEB SCH ×4 (01:12→19:10)
[2017-09-06 05:42] VITALS: BP 113/64
[2017-09-06 06:49] LABS: BASOPHILS % 0.2 % (0.0-1.0); EOSINOPHILS # (AUTO) 0.1 (0.0-0.4); EOSINOPHILS % 1.3 % (0.0-6.0); HEMATOCRIT 41.5 % (34.2-44.1); HEMOGLOBIN 13.4 g/dL (12.0-16.0); LYMPHOCYTES # (AUTO) 1.8 (1.0-3.2); MEAN CORPUSCULAR HEMOGLOBIN 30.7 pg (28-32); MEAN CORPUSCULAR HGB CONC 32.3 g/dL (31-35); MEAN CORPUSCULAR VOLUME 95.2 fL (81-99); MONOCYTES # (AUTO) 0.9 (0.2-0.8); MONOCYTES % 10.4 % (4.4-11.3); NEUTROPHILS # (AUTO) 5.3 (2.1-6.9); NEUTROPHILS % 65.6 % (38.7-80.0); PLATELET COUNT 137 x10e3/uL (140-360); RED BLOOD COUNT 4.36 x10e6/uL (3.6-5.1); RED CELL DISTRIBUTION WIDTH 13.2 % (11.7-14.4)
[2017-09-06 07:11] LABS: BLOOD UREA NITROGEN 34 mg/dL (7-26); BUN/CREATININE RATIO 40 (6-25); CALCIUM 9.9 mg/dL (8.4-10.2); CARBON DIOXIDE 30 mmol/L (22-29); CHLORIDE 102 mmol/L (98-107); CREATININE, SERUM 0.85 mg/dL (0.57-1.11); EST GLOMERULAR FILTRATION RATE > 60 ML/MIN (60-); GLUCOSE 81 mg/dL (74-118); SODIUM 142 mmol/L (136-145)
[2017-09-06] MEDS: INSULIN REGULAR, HUMAN 100 UNIT/1 ML 3ML VIAL SQ SCH ×4 (07:30→21:00)
[2017-09-06 08:58] VITALS: BP 129/60
[2017-09-06] MEDS: MEGESTROL ACETATE 40 MG TAB PO SCH ×2 (09:00→17:00)
[2017-09-06] MEDS: ASPIRIN 325 MG TAB PO SCH (09:00)
[2017-09-06] MEDS: METOPROLOL TARTRATE 25 MG TAB PO SCH ×2 (09:00→22:10)
[2017-09-06] MEDS: ALPRAZOLAM 0.25 MG TAB PO SCH ×2 (09:00→22:10)
[2017-09-06] MEDS: CITALOPRAM HYDROBROMIDE 20 MG TAB PO SCH (09:00)
[2017-09-06] MEDS: LOSARTAN POTASSIUM 25 MG TAB PO SCH (09:00)
[2017-09-06] MEDS: FAMOTIDINE 20 MG/2 ML VIAL IV SCH (09:00)
[2017-09-06 09:06] VITALS: BP 129/60
[2017-09-06 11:41] VITALS: BP 110/56
[2017-09-06] MEDS ORDERED: LOPRESSOR25 MG PO (14:04)
[2017-09-06] MEDS ORDERED: ASPIRIN325 MG PO (14:04)
[2017-09-06] MEDS ORDERED: FAMOTIDINE20 MG/2 ML IV (14:04)
[2017-09-06] MEDS ORDERED: MEGESTROL ACETA40 MG PO (14:08)
[2017-09-06 16:26] VITALS: BP 102/58
[2017-09-06] MEDS: FAMOTIDINE 20 MG TAB PO SCH (16:30)
--- NOTE | 2017-09-06 18:12 | Discharge Summary ---
PRINCIPAL DIAGNOSES 1. Acute delirium. 2. Spiculated right lung nodule, 0.9 cm. 3. Hypernatremia. 4. Elevated troponin. 5. Acute emphysema exacerbation. 6. Acute anxiety disorder. 7. Physical deconditioning. 8. Thrombocytopenia. 9. Prediabetes. Hemoglobin A1c 6.2, LDL 80. SECONDARY DIAGNOSIS: Hypertension. CHIEF COMPLAINT: Confusion and shortness of breath. HISTORY OF PRESENT ILLNESS: A 77-year-old woman with confusion and shortness of breath. Refer to the H and P for further details. HOSPITAL COURSE: Patient was found to have spiculated right lung nodule, 0.9 cm. She needs followup outpatient and pulmonary services for further care. She had acute exacerbation of emphysema and received oxygen, nebs, steroids, and antibiotics. She had anxiety and depression, and acute delirium, which has improved. She had physical deconditioning and received physical therapy. Hyperglycemia was evaluated. Hemoglobin A1c was 6.2. She has prediabetes. LDL 80 and triglycerides 91. The patient has improved. Unable to obtain skilled facility care due to funding issues. Therefore, she was discharged home with home health services and physical therapy. DISCHARGE MEDICATIONS: Per electronic medical record. FOLLOWUP 1. Primary care doctor in 1 week. 2. Follow up with pulmonary services in 2 weeks. CONDITION ON DISCHARGE: Stable and improving. DISCHARGE LOCATION: Home with physical therapy. ALBINO ROJAS MD Job#: [id number] [place]
--- NOTE | 2017-09-06 18:50 | Discharge Summary ---
PRINCIPAL DIAGNOSES 1. Acute delirium. 2. Spiculated right lung nodule, 0.9 cm. 3. Hypernatremia. 4. Elevated troponin. 5. Acute emphysema exacerbation. 6. Anxiety/depression. 7. Physical deconditioning. 8. Thrombocytopenia. 9. Hypertension. 10. Prediabetes. Hemoglobin A1c 6.2, LDL 80, triglycerides 91. SECONDARY DIAGNOSIS: Hypertension. CHIEF COMPLAINT: Confusion and shortness of breath. HISTORY OF PRESENT ILLNESS: A 77-year-old woman with shortness of breath. Please refer to the H and P for further details. HOSPITAL COURSE: Patient was found to have a spiculated right lung nodule 0.9 cm, needs followup with pulmonary services for further care. No biopsy was done at this time. She had acute delirium, which improved. She had hypernatremia, which also resolved. Elevated troponin without acute coronary artery syndrome. She had acute exacerbation of emphysema, which has improved. She had anxiety, depression, and physical deconditioning, received physical therapy. Thrombocytopenia, also had hyperglycemia. Hemoglobin A1c is 6.2. She has prediabetes. LDL was 80. Patient is doing better, received physical therapy, and currently appropriate for discharge and followup. DISCHARGE MEDICATIONS: Per electronic medical record. FOLLOW UP: Primary care doctor in 1 week and pulmonary services in 2 weeks. CONDITION ON DISCHARGE: Stable and improving. DISCHARGE LOCATION: Home with home health and physical therapy. ALBINO ROJAS MD Job#: [id number] [facility]
[2017-09-06 20:00] VITALS: BP 148/66
[2017-09-06] MEDS: MONTELUKAST SODIUM 10 MG TAB PO SCH (22:10)
[2017-09-06] MEDS: SIMVASTATIN 20 MG TAB PO SCH (22:10)
[2017-09-07] VITALS (8 sets, daily range): BP systolic 86–148; BP diastolic 44–80
[2017-09-07] MEDS: ALBUTEROL/IPRATROPIUM 3 ML NEB NEB SCH ×4 (01:25→18:35)
[2017-09-07 07:23] LABS: BASOPHILS % 0.3 % (0.0-1.0); EOSINOPHILS # (AUTO) 0.1 (0.0-0.4); EOSINOPHILS % 1.2 % (0.0-6.0); HEMATOCRIT 41.6 % (34.2-44.1); HEMOGLOBIN 13.3 g/dL (12.0-16.0); LYMPHOCYTES # (AUTO) 1.8 (1.0-3.2); LYMPHOCYTES % 24.7 % (18.0-39.1); MEAN CORPUSCULAR HEMOGLOBIN 30.8 pg (28-32); MEAN CORPUSCULAR VOLUME 96.3 fL (81-99); MONOCYTES # (AUTO) 0.9 (0.2-0.8); MONOCYTES % 11.9 % (4.4-11.3); NEUTROPHILS # (AUTO) 4.4 (2.1-6.9); NEUTROPHILS % 61.6 % (38.7-80.0); PLATELET COUNT 134 x10e3/uL (140-360); RED BLOOD COUNT 4.32 x10e6/uL (3.6-5.1); RED CELL DISTRIBUTION WIDTH 13.2 % (11.7-14.4)
[2017-09-07] MEDS: INSULIN REGULAR, HUMAN 100 UNIT/1 ML 3ML VIAL SQ SCH ×4 (07:30→20:32)
[2017-09-07 07:42] LABS: ANION GAP 13.1 mmol/L (8-16); BLOOD UREA NITROGEN 41 mg/dL (7-26); BUN/CREATININE RATIO 53 (6-25); CALCIUM 9.6 mg/dL (8.4-10.2); CARBON DIOXIDE 30 mmol/L (22-29); CHLORIDE 104 mmol/L (98-107); CREATININE, SERUM 0.78 mg/dL (0.57-1.11); EST GLOMERULAR FILTRATION RATE > 60 ML/MIN (60-); GLUCOSE 83 mg/dL (74-118); POTASSIUM 4.1 mmol/L (3.5-5.1); SODIUM 143 mmol/L (136-145)
[2017-09-07] MEDS: FAMOTIDINE 20 MG TAB PO SCH ×2 (07:56→16:30)
[2017-09-07] MEDS: LOSARTAN POTASSIUM 25 MG TAB PO SCH (09:30)
[2017-09-07] MEDS: ALPRAZOLAM 0.25 MG TAB PO SCH (09:30)
[2017-09-07] MEDS: METOPROLOL TARTRATE 25 MG TAB PO SCH ×2 (09:30→21:00)
[2017-09-07] MEDS: CITALOPRAM HYDROBROMIDE 20 MG TAB PO SCH (09:30)
[2017-09-07] MEDS: ASPIRIN 325 MG TAB PO SCH (09:30)
[2017-09-07] MEDS: MEGESTROL ACETATE 40 MG TAB PO SCH ×2 (09:30→17:20)
== END 2017-09-07 22:08 | DRG 190 ==
LOC: FSED 12:47 → EDBEDREQ 18:15 → FSED 18:59 → ER 20:55 → MED/SURG 21:08 → MED/SURG3 09-03 21:41
PROVIDERS: ADMIT Internal Medicine; ATTEND Internal Medicine
DX: J44.1 Chronic obstructive pulmonary disease with (acute) exacerbation (principal); G93.40 Encephalopathy, unspecified; E87.0 Hyperosmolality and hypernatremia; D69.6 Thrombocytopenia, unspecified; E11.65 Type 2 diabetes mellitus with hyperglycemia; E11.649 Type 2 diabetes mellitus with hypoglycemia without coma; F05 Delirium due to known physiological condition; F02.81 Dementia in other diseases classified elsewhere, unspecified severity, with behavioral disturbance; G30.9 Alzheimer's disease, unspecified; E86.0 Dehydration; I25.10 Atherosclerotic heart disease of native coronary artery without angina pectoris; R91.8 Other nonspecific abnormal finding of lung field; R01.1 Cardiac murmur, unspecified; F41.8 Other specified anxiety disorders; Z66 Do not resuscitate; I27.20 Pulmonary hypertension, unspecified
CPT/HCPCS: 36415; 70450; 71045; 71250; 80048; 80061; 81001; 82550; 82553; 82948; 83036; 83735; 84443; 84484; 85025; 87086; 93005; 93306; 94640; 97139; 99284; J0171; J0456; J0696; J1885; J2060; J2405; J2795; J2930; J7030; J7040; J7799